=== PATIENT | male | born 1955 ===

== ENCOUNTER 2022-02-28 11:16 | Observation (INO) | payer OTHER ==
[~2022-02-28] VITALS: Ht 165.1 cm; Wt 95.8 kg
[~2022-02-28 11:16] MED LIST: HYDACE5 PO; IBUP400 PO; IBUP600 PO; SULTRISS PO
[2022-02-28 12:45] LABS: BASOPHILS ABSOLUTE AUTO 0.03 K/mm3 (0.00-0.23); BASOPHILS PERCENT AUTO 1 % (0-2); EOSINOPHILS ABSOLUTE AUTO 0.01 K/mm3 (0.00-0.68); EOSINOPHILS PERCENT AUTO 0 % (0-6); Hematocrit 46.1 % (37.0-53.0); Hemoglobin 15.5 g/dL (13.5-17.5); IMMATURE GRAN PERCENT AUTO 0 % (0-1); LYMPHOCYTES ABSOLUTE AUTO 0.97 K/mm3 (0.84-5.20); LYMPHOCYTES PERCENT AUTO 19 % (21-46); MONOCYTES ABSOLUTE AUTO 0.36 K/mm3 (0.16-1.47); MONOCYTES PERCENT AUTO 7 % (4-13); Mean Corpuscular HGB 31.4 pg (26.0-34.0); Mean Corpuscular HGB Conc 33.6 g/dL (31.5-36.5); Mean Corpuscular Volume 94 fL (80-100); NEUTROPHILS ABSOLUTE AUTO 3.82 K/mm3 (1.96-9.15); NEUTROPHILS PERCENT AUTO 74 % (41-73); Platelet Count 242 K/mm3 (150-400); RDW Coefficient Variation 11.8 % (11.7-14.2); RDW Standard Deviation 40.7 fL (35.1-46.3); Red Blood Cell Count 4.93 M/mm3 (4.30-5.90); White Blood Cell Count 5.19 K/mm3 (4.00-11.30)
[2022-02-28 13:07] LABS: Alanine Aminotransfer (ALT/SGP 44 U/L (12-78); Alk Phos 125 U/L (50-136); Anion Gap 4 mmol/L (6-16); Aspartate Aminotrans (AST/SGOT 20 U/L (12-37); Bilirubin, Total 0.4 mg/dL (0.1-1.0); Blood Urea Nitrogen 14 mg/dL (8-24); Bun/Creatinine Ratio 17.5 (12.0-20.0); CO2, Blood 28 mmol/L (21-32); Calcium, Blood 9.2 mg/dL (8.5-10.1); Chloride, Blood 108 mmol/L (98-108); Glomerular Filtration Rate >60 (60-); Glucose, Blood 104 mg/dL (70-99); Potassium, Blood 3.9 mmol/L (3.5-5.5); Sodium, Blood 140 mmol/L (136-145)
--- NOTE | 2022-03-01 01:19 | NUR ---
PATIENT TRANSFERED FROM ER TO PCU ROOM 1, ACCOMPANIED BY ER NURSE. PATIENT IS ALERT AND ORIENTED TIMES 4 DENIES PAIN ON ASSESSEMENT.LUNGS SOUNDS ASSESSED AND BOWEL SOUNDS PATENT LAST BM 02/28/22. PULSE ARE PRESENT IN ALL AREAS.CARDIAC CONSULTED.PATIENT ORIENTED TO ROOM AND CALL LIGHT SYSTEM. CONTINUOUS MONITORING IN PLACED.
--- NOTE | 2022-03-01 10:03 | NUR ---
PT LEFT FOR PROCEDURE AT 1000 VIA WHEELCHAIR. PT ON RA FOR TRANSFER. PT ABLE TO TRANSFER SELF TO AND FROM WHEELCHAIR.
--- NOTE | 2022-03-01 14:51 | NUR ---
PT LEFT FOR IMAGING AROUND 1430 VIA WHEELCHAIR.
[2022-03-01] MEDS ORDERED: METO25 PO (16:51)
--- NOTE | 2022-03-01 17:51 | NUR ---
DISCHARGE UPDATE DISCHARGE INSTRUCTIONS GONE OVER WITH PT AND PT AT 1735. PT LEFT UNIT AT 1745 VIA WHEELCHAIR. DISCHARGE PACKET WITH PT DURING DISCHARGE. PT BELONGINGS WITH PT DURING DISCHARGE. PT ABLE TO TRANSFER SELF TO AND FROM WHEELCHAIR, TOLERARTED WELL. PT REQUESTED TO WALK FROM [facility] TO [facility].
== END 2022-03-01 18:00 | disposition home or self-care (01) ==
LOC: ER 11:16 → PCU 11:17
PROVIDERS: Physician Assistant; ADMIT Internal Medicine
DX: R55 Syncope and collapse (principal); Z88.1 Allergy status to other antibiotic agents; Z88.0 Allergy status to penicillin
CPT/HCPCS: 36415; 78452; 80053; 84484; 85025; 93005; 93010; 93017; 99285-25; A9500; G0378; J0706; J2785

== ENCOUNTER → 2022-06-19 | Outpatient (CLI) | payer OTHER ==
[~2022-06-19] MED LIST changes: +METO25 PO
[2022-06-19 13:04] LABS: Stool Occult Bld Immuno 1 Negative (NEGATIVE)
== END | disposition home or self-care (01) ==
LOC: LAB 11:22 → LAB SHORT 11:22
PROVIDERS: Family Medicine
DX: R10.12 Left upper quadrant pain (principal)
CPT/HCPCS: 82274

== ENCOUNTER → 2023-02-15 | Outpatient (CLI) | payer OTHER ==
[2023-02-15 18:37] LABS: BASOPHILS ABSOLUTE AUTO 0.03 K/mm3 (0.00-0.23); BASOPHILS PERCENT AUTO 1 % (0-2); EOSINOPHILS ABSOLUTE AUTO 0.04 K/mm3 (0.00-0.68); EOSINOPHILS PERCENT AUTO 1 % (0-6); Hematocrit 43.4 % (37.0-53.0); Hemoglobin 15.3 g/dL (13.5-17.5); IMMATURE GRAN ABSOLUTE AUTO 0.01 K/mm3 (0.00-0.10); IMMATURE GRAN PERCENT AUTO 0 % (0-1); LYMPHOCYTES PERCENT AUTO 31 % (21-46); MONOCYTES ABSOLUTE AUTO 0.43 K/mm3 (0.16-1.47); MONOCYTES PERCENT AUTO 7 % (4-13); Mean Corpuscular HGB 32.7 pg (26.0-34.0); Mean Corpuscular HGB Conc 35.3 g/dL (31.5-36.5); Mean Corpuscular Volume 93 fL (80-100); NEUTROPHILS ABSOLUTE AUTO 3.56 K/mm3 (1.96-9.15); NEUTROPHILS PERCENT AUTO 61 % (41-73); Platelet Count 220 K/mm3 (150-400); RDW Standard Deviation 41.1 fL (35.1-46.3); Red Blood Cell Count 4.68 M/mm3 (4.30-5.90); White Blood Cell Count 5.87 K/mm3 (4.00-11.30)
[2023-02-15 18:45] LABS: Albumin/Globulin Ratio 1.1 (0.8-1.8); Bilirubin, Total 0.3 mg/dL (0.1-1.0); Bun/Creatinine Ratio 16.2 (12.0-20.0); Calcium, Blood 9.2 mg/dL (8.5-10.1); Creatinine, Blood 1.05 mg/dL (0.60-1.20); Globulin, Blood 3.6 g/dL (2.2-4.0); Total Protein, Blood 7.6 g/dL (6.4-8.2)
== END | disposition home or self-care (01) ==
LOC: LAB 18:29 → LAB SHORT 18:29
PROVIDERS: Emergency Medicine
DX: R07.9 Chest pain, unspecified (principal); R00.2 Palpitations
CPT/HCPCS: 80053; 83690; 83880; 84484; 85025

== ENCOUNTER 2023-06-05 10:01 | Day surgery (SDC) | payer OTHER ==
[~2023-06-05] VITALS: Ht 165.1 cm; Wt 95.2 kg
[2023-06-05 11:36] VITALS: BP 98/69
== END 2023-06-05 11:40 | disposition home or self-care (01) ==
LOC: ORSCSDS 10:01
PROVIDERS: Student in an Organized Health Care Education/Training Program
PROC: 0DBK8ZX Excision of Ascending Colon, Via Natural or Artificial Opening Endoscopic, Diagnostic (ICD-10-PCS; principal; 2023-06-05 11:45)
PROC: 0DBN8ZX Excision of Sigmoid Colon, Via Natural or Artificial Opening Endoscopic, Diagnostic (ICD-10-PCS; principal; 2023-06-05 11:45)
PROC: 0DBL8ZX Excision of Transverse Colon, Via Natural or Artificial Opening Endoscopic, Diagnostic (ICD-10-PCS; principal; 2023-06-05 11:45)
PROC: 0DBP8ZX Excision of Rectum, Via Natural or Artificial Opening Endoscopic, Diagnostic (ICD-10-PCS; principal; 2023-06-05 11:45)
DX: R10.32 Left lower quadrant pain (principal); Z86.010 Personal history of colon polyps; D12.2 Benign neoplasm of ascending colon; D12.5 Benign neoplasm of sigmoid colon; K62.1 Rectal polyp; K63.89 Other specified diseases of intestine; K59.09 Other constipation; K64.8 Other hemorrhoids; K62.89 Other specified diseases of anus and rectum; I10 Essential (primary) hypertension; G47.33 Obstructive sleep apnea (adult) (pediatric); Z79.899 Other long term (current) drug therapy; E66.9 Obesity, unspecified; Z68.34 Body mass index [BMI] 34.0-34.9, adult
CPT/HCPCS: 88305; J2704; J7120